=== PATIENT | female | born 1995 | race Caucasian/White ===

== ENCOUNTER 2022-09-06 11:15 | Emergency (ER) | payer OTHER, SELFPAY ==
--- NOTE | 2022-09-06 11:19 | ED.URI ---
HPI - URI/Sore Throat General Chief Complaint: Upper Respiratory Infection Stated Complaint: SORE THROAT/BODY ACHES/FEVER Time Seen by Provider: 09/06/22 11:22 Source: patient, RN notes reviewed and old records reviewed Mode of arrival: ambulatory Limitations: no limitations History of Present Illness HPI Narrative: 27 year old female who presents to [facility] with complaints of sore throat, has felt achy and has had low grade fevers for the past 24 hours. Patient reports that she has been COVID vaccinated and has had flu shot this season. Patient has been taking daily Zyrtec. Patient reports that she has no cough or any runny nose. Patient reports no known ill contacts.Patient did home COVID test which was negative. MD elicited complaint: fever (low grade), sore throat and other (body aches) Onset (ago): day(s) (1) Consistency: constant Pain scale (0-10): 6 Able to tolerate fluids by mouth: Yes Treatments prior to arrival: other (zyrtec) Related Data Home Medications Medication Instructions Recorded Confirmed cetirizine 10 mg tablet (Zyrtec) 20 mg PO DAILY PRN Congestion 03/19/21 09/06/22 Allergies Allergy/AdvReac Type Severity Reaction Status Date / Time chlorpheniramine Allergy Unknown Swelling Verified 09/06/22 11:26 dexchlorpheniramine Allergy Unknown Swelling Verified 09/06/22 11:26 horse dander Allergy Unknown Sneezing Verified 09/06/22 11:26 phenylephrine Allergy Unknown Swelling Verified 09/06/22 11:26 Review of Systems Review of Systems: CONSTITUTIONAL: Reports malaise, chills, sweats, or fever. EYES: Denies visual changes, redness, or discharge. ENT: Reports no rhinorrhea, congestion, sinus pain, no otalgia positive sore throat. CARDIOVASCULAR: Denies chest pain, palpitations, or edema. RESPIRATORY: Reports no cough.? Denies dyspnea. GASTROINTESTINAL: Denies abdominal pain, nausea, vomiting, diarrhea SKIN: Denies rash or itching. MUSCULOSKELETAL: Reports myalgia. NEUROLOGIC: Denies headache. All systems reviewed & are unremarkable except as noted in HPI and below PMFSH Past Medical History Medical History (Updated 09/07/22 @ 21:08 by Radha Chambers NP) Dysmenorrhea, unspecified Essential hypertension Exercise induced bronchospasm PCOS (polycystic ovarian syndrome) Family History Family History Mother Diabetes mellitus Depression Grandparent Depression Family history of cardiovascular disease Malignant neoplasm of prostate Family history of atrial fibrillation Father Hypertension Family history of seizure disorder Grandparent Alzheimer disease Social History Social History Smoking status: Never smoker Alcohol intake: current Substance use: never Substance use type: does not use Lack of Transportation: No Lack of Food: Never True Current Housing: I Have Housing Concerned About Future Housing: No Difficulty Paying Gas/Electric Bills: No Difficulty Paying for Meds: No Currently Unemployed: No Education: Master's Degree or Higher Difficulty w/ Childcare or Family Care: No Comments At time of signature, agree with nursing past medical, surgical, social and family history. There is no relevant family history pertinent to the presenting complaint Exam Narrative: GENERAL: Well-appearing, well-nourished, and in no acute distress. HEAD: Normocephalic EYES: PERRLA, conjunctivae clear ENT: Nares clear, turbinates edematous and erythematous, no nasal discharge. Mucous membranes moist. TM pearly russo with dull light reflex bilaterally; no tragal tenderness. Oropharynx erythematous without lesions. Tonsils not enlarged and without exudate, throat is red,, no drooling, no hoarseness, no trismus, uvula midline. NECK: Supple. No lymphadenopathy CHEST: Clear to auscultation, breath sounds equal. No wheezing, rhonchi, rales, or stridor
[2022-09-06 11:29] VITALS: BP 162/108; PULSE 112; RESP 16; TEMP 37.7; O2SAT 100
== END 2022-09-06 12:06 | disposition home or self-care (01) ==
PROVIDERS: Emergency Provider Registered Nurse; PCP Physician Assistant
DX: J06.9 Acute upper respiratory infection, unspecified (principal); I10 Essential (primary) hypertension; E28.2 Polycystic ovarian syndrome; J45.990 Exercise induced bronchospasm
CPT/HCPCS: 87081; 87880; 99213; G0463

== ENCOUNTER 2025-05-01 08:57 | Emergency (ER) | payer OTHER, SELFPAY ==
[2025-05-01 09:09] VITALS: BP 142/85; PULSE 92; RESP 16; TEMP 37.1; O2SAT 100
--- NOTE | 2025-05-01 09:32 | ED_ITS ---
HPI - URI/Sore Throat General Chief Complaint: Upper Respiratory Infection Stated Complaint: Upper Respiratory Symptoms Time Seen by Provider: 05/01/25 09:10 Source: patient and RN notes reviewed Mode of arrival: ambulatory Limitations: no limitations History of Present Illness HPI Narrative: 30-year-old female patient presents today complaining of 5 day history of body aches, congestion, cough, rhinorrhea, postnasal drip. She ran a fever for the 1st few days of illness but this has since resolved. Denies shortness of breath or chest pain. She has been taking DayQuil, NyQuil, and naproxen with mild relief. No history of asthma or COPD. She is a nonsmoker. Related Data Home Medications ?Medication ?Instructions ?Recorded ?Confirmed ?Last Taken ?Type cetirizine 10 mg tablet (Zyrtec) 20 mg PO DAILY PRN Co ngestion 03/19/21 05/01/25 Unknown History Allergies Allergy/AdvReac Type Severity Reaction Status Date / Time chlorpheniramine Allergy Unknown Swelling Verified 05/01/25 09:03 dexchlorpheniramine Allergy Unknown Swelling Verified 05/01/25 09:03 horse dander Allergy Unknown Sneezing Verified 05/01/25 09:03 phenylephrine Allergy Unknown Swelling Verified 05/01/25 09:03 metformin AdvReac Severe gi Verified 05/01/25 09:03 distress and pain PMFSH Past Medical History Medical History PCOS (polycystic ovarian syndrome) Dysmenorrhea, unspecified Essential hypertension Exercise induced bronchospasm Family History Family History Mother Diabetes mellitus Depression Grandparent Depression Family history of cardiovascular disease Malignant neoplasm of prostate Family history of atrial fibrillation Father Hypertension Family history of seizure disorder Grandparent Alzheimer disease Social History Social History (Updated 12/27/24 @ 15:31 by Roxanne Hwang MA) Smoking status: Never smoker Alcohol intake: never Substance use: current Substance use type: marijuana Last use: twice a month Lack of Transportation: No Lack of Food: Never True Current Housing: I Have Housing Concerned About Future Housing: No Difficulty Paying Gas/Electric Bills: No Difficulty Paying for Meds: No Currently Unemployed: No Education: Master's Degree or Higher Difficulty w/ Childcare or Family Care: No Comments At time of signature, I have reviewed and agree with nursing past medical, surgical, social and family history unless otherwise noted. Please see nursing chart for further information. There is no relevant family history pertinent to the presenting complaint Exam Narrative: GENERAL: Mildly ill-appearing, well-nourished, and in no acute distress. HEAD: Normocephalic, atraumatic. EYES: EOMI. No redness or drainage. Conjunctivae normal. ENT: Mucous membranes pink and moist. Nares congested with rhinorrhea. Left TM injected. Right TM normal. Throat mildly erythematous without edema or exudate. Uvula midline. NECK: Normal AROM. Supple. Bilateral anterior cervical chain lymphadenopathy. CHEST: No respiratory distress. Clear to auscultation. HEART: Regular rate and rhythm. No murmur appreciated. EXTREMITIES: Normal range of motion. No edema. SKIN: Warm, dry, no rash. Capillary refill normal. Normal skin turgor. NEURO: No focal deficits. Alert and oriented x3. Gait steady. PSYCH: Normal affect. No signs of depression or anxiety. Course Course Level of Care: Express Care Visit Vital Signs Vital signs: Vital Signs Temperature 98.7 F 05/01/25 09:09 Pulse Rate 92 05/01/25 09:09 Respiratory Rate 16 05/01/25 09:09 Blood Pressure 142/85 H 05/01/25 09:09 Pulse Oximetry 100 05/01/25 09:09 Temperature 98.7 F 05/01/25 09:09 Pulse Rate 92 05/01/25 09:09 Respiratory Rate 16 05/01/25 09:09 Blood Pressure 142/85 H 05/01/25 09:09 Pulse Oximetry 100 05/01/25 09:09 Reviewed MDM - URI/Sore Throat MDM Narrative Medical decision making narrative: 30-year-old female patient presents today complaining of 5 day history of body aches, congestion, cough, rhinorrhea, postnasal drip. She ran a fever for the 1st few days of illness but this has since resolved. Denies shortness of breath or chest pain. She has been taking DayQuil, NyQuil, and naproxen with mild relief. No history of asthma or COPD. She is a nonsmoker. Upon exam, patient is mildly ill appearing with left injected TM, mildly erythematous throat and nasal congestion. Patient requested rapid strep, which is negative. Culture pending. Symptoms likely viral in etiology. Discussed [id number] medication use and duration of illness. No prescription medications indicated at this time. Anticipatory guidance given. Vital signs stable. Patient agrees with plan. Differential Diagnosis Differential diagnosis: Likely upper respiratory infection, otitis media, viral infection, pharyngitis and other (Strep throat) Lab Data Attestation: I reviewed the patient's lab results. Lab results narrative: Rapid strep negative Critical Care Time Critical Care Time Critical Care Time: No Discharge Plan Discharge Clinical Impression: Upper respiratory infection Qualifiers: URI type: unspecified URI Qualified Code(s): J06.9 - Acute upper respiratory infection, unspecified Patient Disposition: Home Condition: Stable Instructions: Upper Respiratory Infection (DC) Additional Instructions: Your rapid strep swab was negative today at [facility]. You will be notified in a few days if the culture comes back positive for strep, and appropriate antibiotics will be called in for you at that time. Your symptoms are likely due to a viral illness, which is not treated with antibiotics. Viral symptoms can be present for up to 7-10 days. Take Tylenol or for fever or pain. Rest and stay hydrated. Follow up with your PCP in [] days if symptoms are not improving. Go to the ER immediately if [] any difficulty breathing or swallowing. Patient Language: Maltese Prescriptions: No Action cetirizine [Zyrtec] 10 mg tablet 20 mg PO DAILY PRN (Reason: Congestion) losartan 100 mg tablet 100 mg PO DAILY Qty: 90 3RF bupropion HCl 300 mg tablet extended release 24 hr 300 mg PO DAILY Qty: 90 3RF hydrochlorothiazide 25 mg tablet 25 mg PO DAILY Qty: 90 1RF Follow-up/Referrals: Oumou Piña MD [Primary Care Provider, Family Practice] Stand Alone Forms: Work/School Release IP Time of Disposition: 09:37
[2025-05-01 09:45] LABS: EDSTREPNEGPOS1 Negative (Negative)
== END 2025-05-01 09:40 | disposition home or self-care (01) ==
PROVIDERS: Emergency Provider Nurse Practitioner; PCP Family Medicine
DX: J06.9 Acute upper respiratory infection, unspecified (principal); F12.90 Cannabis use, unspecified, uncomplicated; I10 Essential (primary) hypertension; E28.2 Polycystic ovarian syndrome
CPT/HCPCS: 87081; 87880; 99213; G0463